=== PATIENT | female | born 1950 | race Caucasian/White ===

== ENCOUNTER 2016-10-16 11:22 | Inpatient (IN) | payer MEDICARE, OTHER ==
[~2016-10-16] VITALS: Ht 160 cm; Wt 83.0 kg
[~2016-10-16 11:22] MED LIST: ALBU0.63 IH; ATOR20TA PO; BUDE10.2 IH; DIOVAN PO; IPRA0.2S48 IH; MONT10TA22 PO; OMEG1CAP PO
[2016-10-16] MEDS ORDERED: VALS160T2 PO (11:47)
--- NOTE | 2016-10-16 11:49 | NUR ---
PT IS IN ROOM #2B. DR OTERO EVALUATED THE PT.
[2016-10-16] MEDS ORDERED: methylPREDNISolone SOD SUCC 125 MG/2 ML VIAL IV ONE (12:00)
[2016-10-16] MEDS ORDERED: ALBUTEROL SULFATE 2.5 MG/3 ML NEBU NEB ONE ×2 (12:00→14:15)
[2016-10-16] MEDS ORDERED: methylPREDNISolone SOD SUCC 125 MG/2 ML VIAL ONE (12:15)
[2016-10-16] MEDS ORDERED: ALBUTEROL SULFATE 2.5 MG/3 ML NEBU ONE ×2 (12:17→15:02)
[2016-10-16] MEDS ORDERED: IV NORMAL SALINE 1000 ML BAG IV ONE (15:30)
[2016-10-16 16:34] LABS: BASOPHILS % (AUTO) 0.4 % (0.0-2.0); EOSINOPHILS % (AUTO) 0.3 % (0.0-7.0); HEMATOCRIT 36.2 % (37-47); HEMOGLOBIN 11.9 G/DL (12.0-16.0); LYMPHOCYTES # (AUTO) 0.6 K/UL (0.8-4.8); LYMPHOCYTES % (AUTO) 6.3 % (20.5-51.5); MEAN CORPUSCULAR HEMOGLOBIN 29.9 UUG (27.0-31.0); MEAN CORPUSCULAR HGB CONC 33 g/dL (32.0-37.0); MEAN CORPUSCULAR VOLUME 90.5 FL (81.0-99.0); MONOCYTES % (AUTO) 0.4 % (0.0-11.0); NEUTROPHILS # (AUTO) 8.5 K/UL (1.8-8.9); NEUTROPHILS % (AUTO) 92.6 % (38.5-71.5); PLATELET COUNT (AUTO) 279 K/UL (150-450); WHITE BLOOD COUNT (AUTO) 9.1 K/UL (4.0-11.2)
[2016-10-16 16:45] LABS: CALCIUM 8.3 mg/dL (8.5-10.1); CREATININE 0.9 mg/dL (0.6-1.3); POTASSIUM 3.5 mmol/L (3.5-5.1)
[2016-10-16 16:59] LABS: ALBUMIN 3.1 g/dL (3.4-5.0); BILIRUBIN,DIRECT 0.1 mg/dL (0.0-0.2); BILIRUBIN,TOTAL 0.3 mg/dL (0.2-1.0); TOTAL PROTEIN, SERUM 7.2 g/dL (6.4-8.2)
[2016-10-16] MEDS ORDERED: ZOLPIDEM 5 MG TABLET PO PRN (18:45)
[2016-10-16] MEDS ORDERED: MAGNESIUM HYDROXIDE 30 ML LIQUID UDC PO PRN (18:45)
[2016-10-16] MEDS ORDERED: ACETAMINOPHEN 325 MG TABLET PO PRN (18:45)
[2016-10-16] MEDS ORDERED: Z GUARD REMEDY PASTE 57 GM TUBE TOP PRN (18:45)
[2016-10-16] MEDS ORDERED: HYDROCODONE/APAP 5-325MG TABLET PO PRN (18:45)
[2016-10-16] MEDS ORDERED: ONDANSETRON 4 MG/2 ML VIAL IV PRN (18:45)
--- NOTE | 2016-10-16 18:47 | NUR ---
report was given to m/s rn. pt is resting in bed comfortably. no s/s of acute distress at this time.
--- NOTE | 2016-10-16 19:13 | NUR ---
report given to maintenance technician 2nd shift rn.
[2016-10-16] MEDS: ALBUTEROL SULFATE 2.5 MG/3 ML NEBU NEB SCH ×2 (19:30→22:30)
--- NOTE | 2016-10-16 19:38 | NUR ---
TRANSFERED TO 2ND FLOOR VIA WHEELCHAIR WITH NO DISTRESS NOTED
[2016-10-16 19:50] VITALS: BP 152/84
--- NOTE | 2016-10-16 19:50 | NUR ---
nsg: pt received fr er, a/o x 4, with dx of status asthmaticus. lungs sounds clear with experitaroy wheezing. but denies sob. v/s stable. cont to monitor.
[2016-10-16] MEDS: OMEGA-3 FATTY ACIDS/FISH OIL CAPSULE PO SCH (20:55)
[2016-10-16] MEDS: methylPREDNISolone SOD SUCC 125 MG/2 ML VIAL IV SCH (20:55)
[2016-10-16] MEDS: ATORVASTATIN 20 MG TABLET PO SCH (20:55)
--- NOTE | 2016-10-17 | NUR ---
nsg: no change in condition.
[2016-10-17] MEDS: ALBUTEROL SULFATE 2.5 MG/3 ML NEBU NEB SCH ×6 (02:50→23:30)
--- NOTE | 2016-10-17 05:23 | NUR ---
nsg: no acute distress noted. denies discomfort. on RA saturating at 95%. received hhn. cont to monitor.
[2016-10-17] MEDS: PANTOPRAZOLE SODIUM 40 MG TABLET.DR PO SCH (06:01)
--- NOTE | 2016-10-17 06:02 | NUR ---
nsg: pt refused am lab draw, wants to speak with .
[2016-10-17 06:20] VITALS: BP 119/76
--- NOTE | 2016-10-17 07:05 | NUR ---
RECEIVED PATIENT FROM HAUL DRIVER
[2016-10-17] MEDS: OMEGA-3 FATTY ACIDS/FISH OIL CAPSULE PO SCH ×2 (08:19→21:08)
[2016-10-17] MEDS: VALSARTAN 80 MG TABLET PO SCH (08:20)
[2016-10-17] MEDS: methylPREDNISolone SOD SUCC 125 MG/2 ML VIAL IV SCH ×3 (08:20→22:13)
[2016-10-17] MEDS ORDERED: VALSARTAN 160 MG TABLET PO SCH (09:00)
--- NOTE | 2016-10-17 10:00 | NUR ---
PATIENT REFUSED BLOOD DRAWING, REFUSED SOLUMEDROL IV ROUTINE MEDS IN SPITE OF EXPLAINING IMPORTANCE OF MEDICATION AT THIS TIME. PT SAID WILL TALK TO .
[2016-10-17 11:03] VITALS: BP 130/69
--- NOTE | 2016-10-17 13:00 | NUR ---
SEEN BY DR BARROS SEE NOTES
[2016-10-17 15:09] VITALS: BP 122/69
[2016-10-17 15:55] LABS: CALCIUM 8.9 mg/dL (8.5-10.1); PHOSPHOROUS 2.7 mg/dL (2.5-4.9); POTASSIUM 4.3 mmol/L (3.5-5.1)
[2016-10-17 15:58] LABS: BASOPHILS % (AUTO) 0.2 % (0.0-2.0); EOSINOPHILS % (AUTO) 0.1 % (0.0-7.0); HEMOGLOBIN 11.6 G/DL (12.0-16.0); LYMPHOCYTES # (AUTO) 2.1 K/UL (0.8-4.8); LYMPHOCYTES % (AUTO) 12.6 % (20.5-51.5); MEAN CORPUSCULAR HEMOGLOBIN 30.1 UUG (27.0-31.0); MEAN CORPUSCULAR HGB CONC 33 g/dL (32.0-37.0); MEAN CORPUSCULAR VOLUME 91.3 FL (81.0-99.0); MONOCYTES # (AUTO) 1.1 K/UL (0.1-1.30); MONOCYTES % (AUTO) 6.3 % (0.0-11.0); NEUTROPHILS # (AUTO) 13.6 K/UL (1.8-8.9); NEUTROPHILS % (AUTO) 80.8 % (38.5-71.5); PLATELET COUNT (AUTO) 282 K/UL (150-450); RED BLOOD CELL COUNT(AUTO) 3.84 MIL/UL (4.2-5.4); WHITE BLOOD COUNT (AUTO) 16.8 K/UL (4.0-11.2)
--- NOTE | 2016-10-17 17:16 | NUR ---
NO ACUTE CHANGE OR DISTRESS.
[2016-10-17 18:45] LABS: *BILIRUBIN,URIN NEGATIVE (NEGATIVE); *BLOOD, URINE NEGATIVE (NEGATIVE); *CLARITY,URINE CLEAR (CLEAR); *COLOR,URINE LIGHT YELLOW (YELLOW); *KETONES,URINE NEGATIVE (NEGATIVE); *PROTEIN,URINE NEGATIVE (NEGATIVE); *UROBILINOGEN,URINE 0.2 E.U./dl (NORMAL); NITRITE, URINE NEGATIVE (NEGATIVE); PH,URINE 5.5 (5.0-8.0); UGLUCOSE NEGATIVE (NEGATIVE)
[2016-10-17 18:49] LABS: BAND % (MANUAL) 3 % (0-10); LYMPHOCYTES % (MANUAL) 15 % (20-40); MONOCYTES % (MANUAL) 5 % (2-10); NEUTROPHILS % (MANUAL) 77 % (42-75); PLATELET ESTIMATE ADEQUATE
[2016-10-17 18:54] LABS: LEUKOCYTE ESTERASE ,URINE TRACE (NEGATIVE)
[2016-10-17 18:55] LABS: SQUAMOUS EPITHELIAL CELL,UR FEW /HPF (NONE SEEN)
--- NOTE | 2016-10-17 18:55 | NUR ---
GAVE REPORT TO FINGERNAIL FORMER
--- NOTE | 2016-10-17 18:56 | NUR ---
GAVE REPORT TO LICENSING AND REGISTRATION DIRECTOR
[2016-10-17 19:00] VITALS: BP 117/60
[2016-10-17] MEDS: ATORVASTATIN 20 MG TABLET PO SCH (21:00)
[2016-10-18] MEDS: ALBUTEROL SULFATE 2.5 MG/3 ML NEBU NEB SCH ×6 (03:03→23:30)
[2016-10-18 06:00] VITALS: BP 120/60
[2016-10-18] MEDS: PANTOPRAZOLE SODIUM 40 MG TABLET.DR PO SCH (06:21)
--- NOTE | 2016-10-18 06:31 | NUR ---
END OF SHIFT REPORT: PT IN BED RESTING, SLEPT INTERMITTENTLY DURING SHIFT. IN NO ACUTE SIGNS OF DISTRESS. PT INITIALLY REFUSED SOLUMEDROL @ 2108, BUT REQUESTED TO GET IT @ 2213PM, REFUSED TO TAKE LIPITOR LAST NIGHT AND PROTONIX THIS AM. "I DON'T NEED THEM". PT IS ALERT, ABLE TO MAKE NEEDS KNOWN. DENIES PAIN. SAFETY MEASURES IN PLACE. CALL LIGHT WITHIN REACH.
[2016-10-18 06:33] LABS: CALCIUM 8.8 mg/dL (8.5-10.1); POTASSIUM 4.5 mmol/L (3.5-5.1)
--- NOTE | 2016-10-18 08:00 | NUR ---
Awake, verbalized feeling better. Room air, not in distress
[2016-10-18 08:06] LABS: BASOPHILS % (AUTO) 0.1 % (0.0-2.0); EOSINOPHILS % (AUTO) 0.3 % (0.0-7.0); HEMATOCRIT 36.4 % (37-47); HEMOGLOBIN 12.1 G/DL (12.0-16.0); LYMPHOCYTES % (AUTO) 8.4 % (20.5-51.5); MEAN CORPUSCULAR HEMOGLOBIN 31.1 UUG (27.0-31.0); MEAN CORPUSCULAR HGB CONC 33 g/dL (32.0-37.0); MEAN CORPUSCULAR VOLUME 93.2 FL (81.0-99.0); MONOCYTES # (AUTO) 0.1 K/UL (0.1-1.30); MONOCYTES % (AUTO) 0.6 % (0.0-11.0); NEUTROPHILS # (AUTO) 10.6 K/UL (1.8-8.9); NEUTROPHILS % (AUTO) 90.6 % (38.5-71.5); PLATELET COUNT (AUTO) 282 K/UL (150-450); RED BLOOD CELL COUNT(AUTO) 3.91 MIL/UL (4.2-5.4); RED CELL DISTRIBUTION WIDTH 13.3 % (11.5-14.5)
[2016-10-18 08:12] LABS: WHITE BLOOD COUNT (AUTO) 11.7 K/UL (4.0-11.2)
[2016-10-18] MEDS: OMEGA-3 FATTY ACIDS/FISH OIL CAPSULE PO SCH ×2 (08:39→21:00)
[2016-10-18] MEDS: methylPREDNISolone SOD SUCC 125 MG/2 ML VIAL IV SCH ×2 (08:40→21:26)
[2016-10-18] MEDS: VALSARTAN 80 MG TABLET PO SCH (08:40)
[2016-10-18 09:36] LABS: LYMPHOCYTES % (MANUAL) 7 % (20-40); MONOCYTES % (MANUAL) 1 % (2-10)
[2016-10-18 09:37] LABS: NEUTROPHILS % (MANUAL) 90 % (42-75)
[2016-10-18 09:38] LABS: METAMYELOCYTES % 2 % (0-1); PLATELET ESTIMATE ADEQUATE
[2016-10-18] MEDS ORDERED: FLUCONAZOLE 100 MG TABLET PO ONE (10:15)
[2016-10-18 11:10] VITALS: BP 131/76
[2016-10-18 15:24] VITALS: BP 128/64
--- NOTE | 2016-10-18 15:44 | NUR ---
Saline lock restarted, compliant with plan of care
--- NOTE | 2016-10-18 18:20 | NUR ---
Not in distress, comfortable
[2016-10-18 19:00] VITALS: BP 147/83
--- NOTE | 2016-10-18 19:00 | NUR ---
PATIENT AWAKE NO SOB NO CHEST PAIN NOTED, NO COMPLAIN OF PAIN.
[2016-10-18] MEDS: ATORVASTATIN 20 MG TABLET PO SCH (21:00)
[2016-10-19] MEDS: ALBUTEROL SULFATE 2.5 MG/3 ML NEBU NEB SCH ×3 (02:36→11:24)
[2016-10-19 04:00] VITALS: BP 130/70
--- NOTE | 2016-10-19 05:08 | NUR ---
PATIENT SLEPT MOST OF THE NIGHT, REFUSED SOME OF HER MEDS. NO SOB NO CHEST PAIN NOTED.
[2016-10-19] MEDS: PANTOPRAZOLE SODIUM 40 MG TABLET.DR PO SCH (06:34)
[2016-10-19] MEDS: OMEGA-3 FATTY ACIDS/FISH OIL CAPSULE PO SCH (09:24)
[2016-10-19] MEDS: VALSARTAN 80 MG TABLET PO SCH (09:25)
[2016-10-19] MEDS: methylPREDNISolone SOD SUCC 125 MG/2 ML VIAL IV SCH (09:25)
[2016-10-19] MEDS ORDERED: PRED20TA PO (09:42)
[2016-10-19] MEDS ORDERED: ALBU2.5V38 NEB (09:42)
[2016-10-19 11:01] VITALS: BP 152/86
[2016-10-19] MEDS ORDERED: VALS80TA2 PO (12:53)
--- NOTE | 2016-10-19 13:12 | NUR ---
PATIENT BEEN DISCHARGE IN SAFE AND STABLE CONDITION. NO S/S OF DISTRESS NOTED. DENIED PAIN OR C/O OF SOB. DISCHARGE INSTRUCTIONS WERE EXPLAINED, A COPY WAS PROVIDED WELL PRESCRIPTIONS. IV REMOVED, 5 MINUTES PRESSURE TO STOP BLEEDING. ID BAND REMOVED. PATIENT IS AMBULATORY, REFUSED TO GO WITH WHEELCHAIR. I ACCOMPANIED PATIENT TO HER PRIVATE CAR.
== END 2016-10-19 13:14 | disposition home or self-care (01) | DRG 203 ==
LOC: ER 11:22 → MED 18:31
PROVIDERS: ADMIT Family Medicine; ATTEND Family Medicine
DX: J45.901 Unspecified asthma with (acute) exacerbation (principal); E11.9 Type 2 diabetes mellitus without complications; E78.5 Hyperlipidemia, unspecified; J44.9 Chronic obstructive pulmonary disease, unspecified; I10 Essential (primary) hypertension; Z82.3 Family history of stroke; Z80.3 Family history of malignant neoplasm of breast; Z87.442 Personal history of urinary calculi; D64.9 Anemia, unspecified; R30.0 Dysuria
CPT/HCPCS: 36415; 71010; 83735; 84100; 85025; 85730; 93005; 94640; 94664; A4663; J2930

== ENCOUNTER 2017-02-26 20:33 | Inpatient (IN) | payer MEDICARE, OTHER ==
[~2017-02-26] VITALS: Ht 160 cm; Wt 82.6 kg
[~2017-02-26 20:33] MED LIST changes: +ALBU2.5V38 NEB; -DIOVAN PO; +PRED20TA PO; +VALS80TA2 PO
--- NOTE | 2017-02-26 20:55 | NUR ---
Pt straight to room c/o SOB with wheezing for approx 4 hrs with no relief from home medications. Audible wheezing noted. RT to bedside for breathing treatment. Pt receiving breathing treatment, awaiting further eval.
--- NOTE | 2017-02-26 22:30 | NUR ---
Pt ambulated to and from br with steady gait. Mild sob noted with excertion. Pt resting in position of comfort for self.
--- NOTE | 2017-02-26 23:20 | NUR ---
Pt receiving additional breathing treatment. Resting with eyes closed. No complaints at this time
[2017-02-27] MEDS ORDERED: MONT10TA22 PO (01:44)
[2017-02-27 01:52] LABS: BASOPHILS % (AUTO) 0.2 % (0.0-2.0); EOSINOPHILS % (AUTO) 0.5 % (0.0-7.0); HEMOGLOBIN 13.3 G/DL (12.0-16.0); LYMPHOCYTES # (AUTO) 0.7 K/UL (0.8-4.8); MEAN CORPUSCULAR HEMOGLOBIN 29.9 UUG (27.0-31.0); MEAN CORPUSCULAR HGB CONC 33 g/dL (32.0-37.0); MEAN CORPUSCULAR VOLUME 90.2 FL (81.0-99.0); MONOCYTES % (AUTO) 0.4 % (0.0-11.0); NEUTROPHILS # (AUTO) 8.6 K/UL (1.8-8.9); NEUTROPHILS % (AUTO) 90.9 % (38.5-71.5); PLATELET COUNT (AUTO) 274 K/UL (150-450); RED BLOOD CELL COUNT(AUTO) 4.43 MIL/UL (4.2-5.4); WHITE BLOOD COUNT (AUTO) 9.3 K/UL (4.0-11.2)
--- NOTE | 2017-02-27 01:54 | NUR ---
Pt ambulated for approx 3-4 mins with BREADING MACHINE TENDER, upon returning to her bed she had audible wheezing, felt SOB and O2 sats on RA was 95%. Dr. Gabriel spoke with pt and pt to be admitted. IV established, labs drawn and sent. Fluid bolus infusing freely to gravity. Pt resting in position of comfort for self.
[2017-02-27 02:03] LABS: POTASSIUM 3.6 mmol/L (3.5-5.1)
[2017-02-27 02:15] LABS: BILIRUBIN,DIRECT 0.1 mg/dL (0.0-0.2); BILIRUBIN,TOTAL 0.2 mg/dL (0.2-1.0); TOTAL PROTEIN, SERUM 7.5 g/dL (6.4-8.2)
--- NOTE | 2017-02-27 02:33 | NUR ---
[facility].
--- NOTE | 2017-02-27 02:56 | NUR ---
Pt c/o headache, Dr. Gabriel notified and pt medicated. Report called to VANESSA Fitch. Preparing to transfer pt to the floor.
--- NOTE | 2017-02-27 03:11 | NUR ---
PATIENT TRANSFERRED FROM ER INTO TELEMETRY AT 0311 IN STABLE CONDITION. NO SIGNS OF RESPIRATORY DISTRESS. AMBULATORY. FALL PRECAUTION BECAUSE OF SHORTNESS OF BREATHE. ORDER PLACED. PATIENT PLACED ON CALENDER OPERATOR HELPER, SINUS RHYTHM; HR 84. VITAL SIGNS: BP 143/69; HR 84; RR 20; SPO2 97% NS 2L; T 98.8 . NO SKIN SYMPTOMS/CONDITIONS. PATIENT COMPLAINED OF PAIN 2/10 ON PAIN SCALE BUT VERBALIZED IT IS TOLERABLE FOR HER. ADMISSIONS ASSESSMENT COMPLETED. BED IN LOCKED POSITION, BED ALARM SET, AND PATIENT UNDERSTANDS USE OF CALL LIGHT. SAFETY AND COMFORT PROVIDED.
[2017-02-27 03:15] VITALS: BP 143/69
[2017-02-27 05:27] VITALS: BP 121/59
--- NOTE | 2017-02-27 06:25 | NUR ---
NO CHANGES T/O SHIFT. SLEPT T/O SHIFT. NO C/O SOB. ON 2L O2 NC. SATING > 95%. TELE SR. ALL NEEDS MET.
--- NOTE | 2017-02-27 06:29 | NUR ---
SOLUMEDROL NON-ADMIN. UNABLE TO GET OUT OF PIXIS. NEW ADMIT.
--- NOTE | 2017-02-27 10:00 | NUR ---
AWAKE ALERT AND VERBALLY RESPONSIVE WITH O2 AT 2L/M BY NASAL CANULA WITH NO SHORTNESS OF BREATH NOTED SOME WHEEZES.TELEMETRY WITH NSR AT THIS TIME.MADE COMFORTABLE
[2017-02-27 11:00] VITALS: BP 119/62
--- NOTE | 2017-02-27 15:54 | NUR ---
SEEN BY DR LEE WITH NEW ORDERS AND NOTED.PATIENT STARTED ON ORAL ANTIBIOTICS ORDERED WITH NO ADVERSE OR ALLERGIC REACTIONS AT THIS TIME.
[2017-02-27 15:57] VITALS: BP 140/72
--- NOTE | 2017-02-27 18:43 | NUR ---
PATIENT IS RESTING STATED FEELS MUCH BETTER NO WHEEZING AT THIS TIME.
--- NOTE | 2017-02-27 19:30 | NUR ---
received patient laying comfortably in bed. no acute distress noted. a&o x 4. patient is able to ambulate. steady gait as witnessed by staff. skin intact. vital signs stable. patient refuse to put on the nasal cannula. she is sating at 98% in room air. safety initiated. call light within reach. will continue to monitor.
[2017-02-27 19:39] VITALS: BP 129/59
--- NOTE | 2017-02-27 20:56 | NUR ---
patient refused atorvastatin 20 mg. medication despite explaining the importance of taking such medications. will continue to monitor.
--- NOTE | 2017-02-28 03:47 | NUR ---
C/O HEADACHES 12/09. MEDS GIVEN. WILL CONTINUE TO MONITOR.
[2017-02-28 04:48] VITALS: BP 144/71
--- NOTE | 2017-02-28 05:00 | NUR ---
PATIENT STATE THAT HEADACHE WENT AWAY A LITTLE BIT. WILL CONTINUE TO MONITOR.
--- NOTE | 2017-02-28 06:01 | NUR ---
PATIENT REFUSED PROTONIX 40 MG.
--- NOTE | 2017-02-28 06:17 | NUR ---
no changes t/o shift. no acute distress noted. a&o x 4. patient tolerated all her breathing tx. she was able to ambulate to and from the restroom with no problems. skin remains intact. safety and comfort measures maintained t/o shift. all meds given as ordered. all needs met.
--- NOTE | 2017-02-28 06:26 | NUR ---
PATIENT DOES NOT WANT ANYTHING STRONGER FOR HER HEADACHES. SHE SAID "JUST LEAVE ME ALONE". WILL CONTINUE TO MONITOR.
[2017-02-28 07:08] LABS: HEMOGLOBIN 12.9 g/dL (10.9-14.3); NEUTROPHILS # (AUTO) 10.8 K/uL (1.8-8.9)
[2017-02-28 07:15] LABS: THYROID STIMULATING HORMONE 0.353 mIU/mL (0.358-3.740)
[2017-02-28 07:20] LABS: BASOPHILS % (AUTO) 0.1 % (0.0-2.0); HEMATOCRIT 37.4 % (31.2-41.9); LYMPHOCYTES # (AUTO) 0.8 K/uL (20.0-40.0); LYMPHOCYTES % (AUTO) 6.6 % (20.5-51.5); MEAN CORPUSCULAR HEMOGLOBIN 31.6 uug (24.7-32.8); MEAN CORPUSCULAR HGB CONC 35 g/dL (32.3-35.6); MEAN CORPUSCULAR VOLUME 91.5 fL (75.5-95.3); MONOCYTES # (AUTO) 0.1 K/uL (2.0-10.0); NEUTROPHILS % (AUTO) 92.3 % (38.5-71.5); RED BLOOD CELL COUNT(AUTO) 4.09 MIL/uL (3.63-4.92)
[2017-02-28 07:25] LABS: PLATELET COUNT (AUTO) 242 K/uL (179-408); WHITE BLOOD COUNT (AUTO) 11.7 K/uL (3.8-11.8)
[2017-02-28 08:25] LABS: MAGNESIUM 1.8 mg/dL (1.8-2.4); PHOSPHOROUS 2.8 mg/dL (2.5-4.9); POTASSIUM 4.2 mmol/L (3.5-5.1)
--- NOTE | 2017-02-28 08:35 | NUR ---
TOOK PT BLOOD PRESSURE 139/69 HR 98. PT DOES NOT WANT BLOOD PRESSURE MEDICATION THAT IS SCHEDULED AT THIS TIME, BENEFITS AND RISK WERE EXPLAINED TO PT, PHARMACISTS BLAIR IN ROOM WELL. PT VERBALIZED UNDERSTANDING. BP MEDICATION NOT GIVEN PER PT REQUEST
[2017-02-28 11:05] VITALS: BP 141/55
[2017-02-28] MEDS ORDERED: AZIT1PAC PO (13:38)
[2017-02-28] MEDS ORDERED: PRED50TA PO (13:38)
[2017-02-28] MEDS ORDERED: ALBU8.5H8 INH (13:38)
[2017-02-28] MEDS ORDERED: PRED10TA PO (13:38)
[2017-02-28] MEDS ORDERED: PRED20TA PO (13:38)
[2017-02-28] MEDS ORDERED: PRED10TA23 PO (13:38)
[2017-02-28] MEDS ORDERED: NIAC500T2 PO (13:39)
[2017-02-28 15:01] VITALS: BP 135/69
--- NOTE | 2017-02-28 16:34 | NUR ---
discharge protocol followed, iv removed with no redness or irritations noted. all belongings accounted for and sent with patient. prescriptions called into pharmacy by charge nurse per [facility] requests. pt left ambulatory in private car with
== END 2017-02-28 16:25 | disposition home or self-care (01) | DRG 203 ==
LOC: ER 20:35 → TELE 02-27 02:37 → MED 02-27 15:29
DX: J45.901 Unspecified asthma with (acute) exacerbation (principal); J44.9 Chronic obstructive pulmonary disease, unspecified; E11.9 Type 2 diabetes mellitus without complications; J06.9 Acute upper respiratory infection, unspecified; I10 Essential (primary) hypertension; Z91.19 Patient's noncompliance with other medical treatment and regimen; E78.5 Hyperlipidemia, unspecified; Z79.899 Other long term (current) drug therapy
CPT/HCPCS: 36415; 70030-TC; 71010; 83735; 84100; 84443; 85025; 85730; 93005; 94640; A4663; J2920; J3590; J7030; J7512; Q0144

== ENCOUNTER 2017-08-18 20:30 | Emergency (ER) | payer MEDICARE, OTHER ==
[~2017-08-18] VITALS: Ht 160 cm; Wt 75.7 kg
[~2017-08-18 20:30] MED LIST changes: -ALBU0.63 IH; +ALBU8.5H8 INH; -ATOR20TA PO; +AZIT1PAC PO; +NIAC500T2 PO; +PRED10TA PO; +PRED10TA23 PO; +PRED50TA PO
--- NOTE | 2017-08-18 20:40 | NUR ---
PATIENT HERE REQUESTING TO REMOVED COPD FROM RECORDS. DENIES HX OF COPD
--- NOTE | 2017-08-18 20:52 | NUR ---
Patient discharged to home in stable conditon. Written and verbal after care instructions given. Patient verbalizes understanding of instructions.
== END 2017-08-18 20:53 | disposition home or self-care (01) ==
LOC: ER 20:45
DX: R06.7 Sneezing (principal); I10 Essential (primary) hypertension; J45.909 Unspecified asthma, uncomplicated; J44.9 Chronic obstructive pulmonary disease, unspecified; E78.5 Hyperlipidemia, unspecified; Z90.49 Acquired absence of other specified parts of digestive tract; Z91.09 Other allergy status, other than to drugs and biological substances; Z79.2 Long term (current) use of antibiotics; Z79.899 Other long term (current) drug therapy
CPT/HCPCS: A4663

== ENCOUNTER 2018-04-15 18:06 | Emergency (ER) | payer MEDICARE, OTHER ==
[~2018-04-15] VITALS: Ht 160 cm; Wt 75.7 kg
[2018-04-15] MEDS ORDERED: ALBUTEROL SULFATE 2.5 MG/3 ML NEBU ONE (18:28)
[2018-04-15] MEDS ORDERED: IPRATROPIUM BROMIDE 0.5 MG/2.5 ML NEBU ONE (18:29)
[2018-04-15] MEDS ORDERED: ALBUTEROL SULFATE 2.5 MG/3 ML NEBU NEB ONE (18:30)
[2018-04-15] MEDS ORDERED: IPRATROPIUM BROMIDE 0.5 MG/2.5 ML NEBU NEB ONE (18:30)
--- NOTE | 2018-04-15 18:33 | NUR ---
Dr Barajas is at bedside evaluating the patient.
[2018-04-15 18:51] LABS: BASOPHILS % (AUTO) 0.5 % (0.0-2.0); EOSINOPHILS # (AUTO) 0.6 K/uL (0.0-0.7); EOSINOPHILS % (AUTO) 7.4 % (0.0-7.0); HEMATOCRIT 35.4 % (31.2-41.9); HEMOGLOBIN 12.1 g/dL (10.9-14.3); LYMPHOCYTES # (AUTO) 3.2 K/uL (20.0-40.0); MEAN CORPUSCULAR HEMOGLOBIN 31.8 uug (24.7-32.8); MEAN CORPUSCULAR HGB CONC 34 g/dL (32.3-35.6); MEAN CORPUSCULAR VOLUME 93.1 fL (75.5-95.3); MONOCYTES # (AUTO) 0.7 K/uL (2.0-10.0); MONOCYTES % (AUTO) 7.9 % (0.0-11.0); NEUTROPHILS # (AUTO) 3.9 K/uL (1.8-8.9); NEUTROPHILS % (AUTO) 46.2 % (38.5-71.5); PLATELET COUNT (AUTO) 272 K/uL (179-408); WHITE BLOOD COUNT (AUTO) 8.5 K/uL (3.8-11.8)
[2018-04-15] MEDS ORDERED: methylPREDNISolone SOD SUCC 125 MG/2 ML VIAL ONE (18:57)
[2018-04-15] MEDS ORDERED: IV NORMAL SALINE 1000 ML BAG IV ONE (19:00)
[2018-04-15] MEDS ORDERED: methylPREDNISolone SOD SUCC 125 MG/2 ML VIAL IV ONE (19:00)
[2018-04-15 19:04] LABS: CREATININE 0.8 mg/dL (0.6-1.3); POTASSIUM 4.2 mmol/L (3.5-5.1)
[2018-04-15 19:17] LABS: BILIRUBIN,DIRECT 0.1 mg/dL (0.0-0.2); BILIRUBIN,TOTAL 0.2 mg/dL (0.2-1.0); TOTAL PROTEIN, SERUM 7.2 g/dL (6.4-8.2)
[2018-04-15] MEDS ORDERED: VALS40TA4 PO (19:26)
--- NOTE | 2018-04-15 20:20 | NUR ---
Pt states, "I feel so much better. I want to go home." VSS.
--- NOTE | 2018-04-15 20:22 | NUR ---
Dr. Barajas at bedside to re-evaluate the pt.
--- NOTE | 2018-04-15 20:30 | NUR ---
IV removed. Catheter intact and site benign. Pressure and 4x4 gauze applied to site. No bleeding noted.
--- NOTE | 2018-04-15 20:36 | NUR ---
Patient discharged to home in stable conditon. Written and verbal after care instructions given. Patient verbalizes understanding of instructions. Pt ambulated out of ER in steady gait. All belongings with pt. VSS. NAD noted.
[2018-04-15 20:49] VITALS: BP 147/77
== END 2018-04-15 20:50 | disposition home or self-care (01) ==
LOC: ER 18:06
DX: J98.01 Acute bronchospasm (principal); I10 Essential (primary) hypertension; J45.909 Unspecified asthma, uncomplicated; E11.9 Type 2 diabetes mellitus without complications; E78.5 Hyperlipidemia, unspecified; Z90.49 Acquired absence of other specified parts of digestive tract; Z79.2 Long term (current) use of antibiotics; Z79.899 Other long term (current) drug therapy
CPT/HCPCS: 36415; 71045; 80048; 80076; 83880; 84484; 85025; 85379; 85730; 93005; 94640; 96374; 99285; J2930; 70030-TC; A4663; J3590; J7030

== ENCOUNTER 2019-10-15 16:33 | Emergency (ER) | payer MEDICARE, OTHER ==
[~2019-10-15] VITALS: Ht 160 cm; Wt 70.3 kg
[~2019-10-15 16:33] MED LIST changes: -AZIT1PAC PO; -IPRA0.2S48 IH; -NIAC500T2 PO; -PRED10TA PO; -PRED10TA23 PO; -PRED20TA PO; -PRED50TA PO; +VALS40TA4 PO; -VALS80TA2 PO
--- NOTE | 2019-10-15 16:59 | NUR ---
PT IS A/OX4, PRESENTS TO THE ER C/O L WRIST PAIN. PT REPORTS SHE WAS BICYCLING AND FELL, INJURYING HER L WRIST. PT DENIES HEAD INJURY/LOC. EDEMA TO L WRIST AND L FOREARM, ABRASION ON L KNEE. PULSE, SENSATION, AND CIRCULATION IN LUE INTACT, HOWEVER LIMITED MOVEMENT BEYOND THE L WRIST. ER MD AT BEDSIDE FOR MSE.
[2019-10-15] MEDS ORDERED: HYDROCODONE/APAP 5-325MG TABLET PO ONE (17:00)
[2019-10-15] MEDS ORDERED: HYDROCODONE/APAP 5-325MG TABLET ONE (17:04)
[2019-10-15] MEDS ORDERED: MORPHINE SULFATE 4 MG/1 ML DISP.SYRIN ONE (18:22)
[2019-10-15] MEDS ORDERED: ONDANSETRON 4 MG/2 ML VIAL ONE (18:22)
[2019-10-15] MEDS ORDERED: MORPHINE SULFATE 4 MG/1 ML DISP.SYRIN IM ONE (18:30)
[2019-10-15] MEDS ORDERED: ONDANSETRON 4 MG/2 ML VIAL IM ONE (18:30)
--- NOTE | 2019-10-15 18:58 | NUR ---
pt taken to radiology for CT scan. shift report given to Herrera Us RN.
--- NOTE | 2019-10-15 19:14 | NUR ---
Pt back to ER from CT.
--- NOTE | 2019-10-15 19:20 | NUR ---
Patient does not wish to proceed with medical care recommended by Dr. Gabriel. Patient given information related to possible complications, up to and including , which could occur as a result of leaving the hospital at this time. Patient verbalizes understanding of risks involved due to leaving against medical advice. Patient has signed AMA form. VSS, no acute signs of distress, all belongings taken.
[2019-10-15 19:23] VITALS: BP 130/85
== END 2019-10-15 19:24 | disposition left against medical advice (07) ==
LOC: ER 16:39
PROC: 2W39X1Z Immobilization of Left Upper Extremity using Splint (ICD-10-PCS; principal; 2019-10-15)
DX: S52.122A Displaced fracture of head of left radius, initial encounter for closed fracture (principal); S52.252A Displaced comminuted fracture of shaft of ulna, left arm, initial encounter for closed fracture; V19.9XXA Pedal cyclist (driver) (passenger) injured in unspecified traffic accident, initial encounter; Y93.55 Activity, bike riding; Y92.89 Other specified places as the place of occurrence of the external cause; M19.042 Primary osteoarthritis, left hand; J45.909 Unspecified asthma, uncomplicated; Z79.51 Long term (current) use of inhaled steroids; I10 Essential (primary) hypertension
CPT/HCPCS: 29105; 73090; 73110; 73200; 96372 ×2; 99284; J2270; J2405; A4663